=== PATIENT | male | born 1975 | race Two or more races ===

== ENCOUNTER 2024-08-08 09:25 | Day surgery (SDC) | payer BC, OTHER, SELFPAY ==
[2024-08-08] VITALS (8 sets, daily range): BP systolic 118–177; BP diastolic 85–104; PULSE 67–87; RESP 12–20; TEMP 36.7–37; O2SAT 91–98; BMI 33.3
[2024-08-08] MEDS: DiphenhydrAMINE INJ 50 MG/ML VIAL 25 MG IV (11:23)
[2024-08-08] MEDS: MIDAZOLAM INJ 1 MG/ML VIAL 2 ML (ASD USE ONLY) 2 MG IV (11:23)
[2024-08-08] MEDS: fentaNYL CIT INJ 50 mCg/ML AMP 2ML (ASD USE ONLY) IV (11:23)
--- NOTE | 2024-08-08 12:21 | SUR.PHASEII ---
D/C INSTRUCTIONS ALSO INCLUDES OBSERVING THE HEMATOMA AT THE IV SITE.
== END 2024-08-08 12:24 | disposition home or self-care (01) ==
PROVIDERS: PCP Internal Medicine; Referring Provider Specialist; Visit Provider Specialist
PROC: 0DBE8ZX Excision of Large Intestine, Via Natural or Artificial Opening Endoscopic, Diagnostic (ICD-10-PCS; CPT 45380; principal; 2024-08-08 10:15)
DX: Z12.11 Encounter for screening for malignant neoplasm of colon (principal); K64.9 Unspecified hemorrhoids
CPT/HCPCS: 45378; J1200; J2250; J3010

== ENCOUNTER → 2025-02-24 | Outpatient (CLI) | payer BC, OTHER, SELFPAY ==
[2025-02-24 07:23] LABS: Misc Send Out* See Sep Rpt
[2025-02-24 08:57] LABS: Prothrombin Time 10.9 Seconds (9.0-12.2)
[2025-02-24 09:02] LABS: Basophils % (Auto) 0 % (0-2.5); Eosinophils # (Auto) 0.2 Thou/mm3 (0.0-0.5); Eosinophils % (Auto) 2 % (0-10); Hematocrit 43.9 % (41.0-53.0); Hemoglobin 14.8 g/dL (13.5-16.0); Immature Granulocytes % (Auto) 0 % (0-0); Immature Granulocytes Auto 0.03 Thou/mm3 (0.00-0.00); Lymphocytes # (Auto) 2.8 Thou/mm3 (1.0-4.8); Lymphocytes % (Auto) 29 % (10-50); Mean Corpuscular HGB Conc 33.7 g/dl (31.0-37.0); Mean Corpuscular Hemoglobin 30.8 pg (25.0-35.0); Mean Corpuscular Volume 92 fL (80-100); Monocytes # (Auto) 0.8 Thou/mm3 (0.0-0.8); Monocytes % (Auto) 8 % (0-12); Neutrophils # (Auto) 5.9 Thou/mm3 (1.8-7.7); Neutrophils % (Auto) 61 % (37-80); Nucleated Red Blood Cell % 0 /100 WBC (0); Platelet Count 168 Thou/mm3 (140-440); RDW Standard Deviation 42.5 fL (35.1-43.9); White Blood Count 9.8 Thou/mm3 (3.8-10.6)
[2025-02-24 09:03] LABS: Glucose Estimated Average 105 mg/dL (80-131); Hemoglobin A1C 5.3 % Hgb (4.8-6.0)
[2025-02-24 09:18] LABS: Vitamin B12 299 pg/mL (211-911)
[2025-02-24 09:20] LABS: Ferritin 251 ng/mL (10.5-307.3)
[2025-02-24 09:22] LABS: Alanine Aminotransferase 19 U/L (10-49); Albumin, Serum 4.5 gm/dL (3.5-5.0); Albumin/Globulin Ratio 1.9 (1.2-2.2); Alkaline Phosphatase 69 U/L (46-116); Anion Gap 8 (7-16); Aspartate Amino Transferase 22 U/L (0-34); BUN/Creatinine Ratio 16 Ratio (12-20); Bilirubin,Total 0.4 mg/dL (0.3-1.2); Blood Urea Nitrogen 13 mg/dL (9-23); Calcium 8.9 mg/dL (8.3-10.6); Calcium (Corrected) 8.9 mg/dL (8.5-10.1); Carbon Dioxide 26.2 mMol/L (20.0-31.0); Cardiac Risk Estimate 5.3 RATIO (4.0-6.7); Chloride 106 mMol/L (98-107); Cholesterol 229 mg/dL (132-200); Creatinine (Component) 0.8 mg/dL (0.6-1.3); Free T4 (Free Thyroxine) 1.05 ng/dL (0.89-1.76); Globulin 2.4 gm/dL (2.3-3.5); Glucose 105 mg/dL (74-106); HDL Cholesterol 43 mg/dL (40-60); LDL Cholesterol,Calculated 158 mg/dL (0-130); Osmolality,Calculated 279 (275-295); Potassium 3.7 mMol/L (3.4-5.1); Sodium 140 mMol/L (136-145); Thyroid Stimulating Hormone 1.92 uIU/mL (0.55-4.78); Total Protein 6.9 gm/dL (5.7-8.2); Triglycerides 139 mg/dL (30-150); eGFR > 60 See Note
[2025-02-24 09:36] LABS: Syphilis Nonreactive (Nonreactive)
[2025-02-25 10:23] LABS: RA Screen Negative (Negative)
[2025-03-02 06:51] LABS: ANA Screen, IFA NEGATIVE (NEGATIVE); HIV Ag/Ab, 4th Gen NON-REACTIVE; Vitamin D,1,25 (OH)2,Total 70 pg/mL (18-72); Vitamin D2, 1,25 (OH)2 <8 pg/mL; Vitamin D3, 1,25 (OH)2 70 pg/mL
== END | disposition home or self-care (01) ==
PROVIDERS: PCP Internal Medicine; Referring Provider Internal Medicine
DX: Z01.818 Encounter for other preprocedural examination (principal); E78.5 Hyperlipidemia, unspecified; I10 Essential (primary) hypertension; L64.9 Androgenic alopecia, unspecified; Z13.29 Encounter for screening for other suspected endocrine disorder; Z13.0 Encounter for screening for diseases of the blood and blood-forming organs and certain disorders involving the immune mechanism; Z11.59 Encounter for screening for other viral diseases; D89.9 Disorder involving the immune mechanism, unspecified
CPT/HCPCS: 36415; 80053; 80061; 82607; 82652; 82728; 83036; 84439; 84443; 84481; 85025; 85610; 86038; 86430; 86780; 87389